=== PATIENT | female | born 1970 | race Caucasian/White ===

== ENCOUNTER → 2021-11-13 | Day surgery (SDC) | payer OTHER ==
[~2021-11-13] VITALS: Ht 157.5 cm; Wt 63.5 kg
[2021-11-13 09:51] LABS: HCG (URINE) SCREEN NEGATIVE (NEGATIVE)
== END | disposition home or self-care (01) ==
LOC: FAS 09:30
PROVIDERS: Anesthesiology
DX: Z12.11 Encounter for screening for malignant neoplasm of colon (principal); K64.8 Other hemorrhoids
CPT/HCPCS: 84703; J2250; J2704; J7120